=== PATIENT | male | born 1985 | race Caucasian/White ===

== ENCOUNTER 2023-05-17 10:44 | Outpatient (CLI) | payer BC, SELFPAY ==
--- NOTE | ~2023-05-17 | US_ITS ---
EXAMINATION: US scrotum doppler DATE: 05/17/2023 11:31 INDICATION: Other specified disorders of the male genital organs. Bilateral scrotal pain. TECHNIQUE: Grayscale and Doppler ultrasound images of the testes were obtained. COMPARISON: None. FINDINGS: The right testis measures 4.3 x 2.4 x 3.1 cm. The left testis measures 4.1 x 2.5 x 2.6 cm. There is normal vascular flow to both testes. The right epididymis demonstrates cysts measuring up to 7 mm. The left epididymis is normal with normal vascular flow. There is a small left hydrocele. IMPRESSION: 1. Small left hydrocele. Reviewed, dictated and finalized at location E. IMPRESSION: 1. Small left hydrocele.
== END 2023-05-17 10:45 ==
PROVIDERS: PCP Nurse Practitioner Family; Visit Provider Nurse Practitioner Family
DX: N50.89 Other specified disorders of the male genital organs (principal); N43.3 Hydrocele, unspecified
CPT/HCPCS: 76870; 93976

== ENCOUNTER 2023-11-05 09:45 | Emergency (ER) | payer BC, SELFPAY ==
[2023-11-05 09:49] VITALS: BP 125/68; PULSE 75; RESP 16; TEMP 36.7; O2SAT 100
[2023-11-05 09:51] VITALS: BP 96/57; PULSE 75; RESP 20; TEMP 36.7; O2SAT 100
[2023-11-05 10:10] VITALS: BP 125/68
--- NOTE | 2023-11-05 10:18 | ED.DENTAL ---
HPI - Dental/Oral General Chief complaint: Dental/Oral Stated complaint: toothache Time Seen by Provider: 11/05/23 10:10 Source: patient and RN notes reviewed Mode of arrival: ambulatory Limitations: no limitations History of Present Illness HPI Narrative: Patient presents today complaining of right lower wisdom tooth pain with surrounding gum swelling times 10 days. States he has episodes like this approximately twice yearly. He does get some significant relief from the ibuprofen and has also been using some Listerine. Woke up this morning with pain rating 5/10, but after some ibuprofen he currently rates it 1/10. He has an appointment with his dentist in 3 weeks. Related Data Home Medications Medication Instructions Recorded Confirmed omeprazole 20 mg capsule,delayed 20 mg PO DAILY 01/11/23 11/05/23 release tadalafil 5 mg tablet (Cialis) 5 mg PO PRN PRN Erectile 05/12/23 11/05/23 Dysfunction Allergies Allergy/AdvReac Type Severity Reaction Status Date / Time Penicillins AdvReac Mild Rash Verified 11/05/23 09:50 Review of Systems Review of Systems: CONSTITUTIONAL: Denies body aches, fever, chills, or sweats. EYES: Denies visual changes, redness, or discharge. ENT: Denies rhinorrhea, congestion, sore throat, or otalgia.+ tooth pain CARDIOVASCULAR: Denies chest pain, palpitations, or edema. RESPIRATORY: Denies cough or dyspnea. GASTROINTESTINAL: Denies abdominal pain, nausea, vomiting, or diarrhea. GENITOURINARY: Denies dysuria or hematuria. SKIN: Denies rash, itching, or wounds. MUSCULOSKELETAL: Denies back pain, joint pain, or myalgia. NEUROLOGIC: Denies headache, numbness, tingling, or weakness. PSYCH: Denies depression or anxiety. [facility] Past Medical History Medical History BMI 24.0-24.9, adult Surgical History Surgical History History of ankle surgery Family History Family History Father Hypertension Mother Osteoporosis Sibling Depression Anxiety Other Asthma Social History Social History Smoking status: Never smoker Second hand tobacco smoke exposure: No Alcohol intake: current Substance use: never Substance use type: does not use Lack of Transportation: No Lack of Food: Never True Current Housing: I Have Housing Concerned About Future Housing: No Difficulty Paying Gas/Electric Bills: No Difficulty Paying for Meds: No Currently Unemployed: No Education: Master's Degree or Higher Living arrangements: with family Occupation/Education: occupation 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 Gender identity (if verbalized by the patient): Male Comments At time of signature, I have reviewed and agree with nursing past medical, surgical, social and family history unless otherwise noted. Please see nursing chart for further information. There is no relevant family history pertinent to the presenting complaint Exam Narrative: GENERAL: Well-appearing, well-nourished, and in no acute distress. HEAD: Normocephalic, atraumatic. EYES: EOMI. No redness or drainage. Conjunctivae normal. ENT: Mucous membranes pink and moist. Throat normal. Uvula midline. Tenderness to tooth number 32 with [id number] surrounding gum swelling. No facial swelling noted. No obvious periapical abscess. NECK: Normal AROM. Supple. No lymphadenopathy. CHEST: No respiratory distress. EXTREMITIES: Normal range of motion. No edema. SKIN: Warm, dry, no rash. Capillary refill normal. Normal skin turgor. NEURO: No focal deficits. Alert and oriented x3. Gait steady. PSYCH: Normal affect. No signs of depression or anxiety. Course Course Level of Care: Express Care Visit Vital Signs Vit
--- NOTE | 2023-11-05 10:30 | PC.NURSE ---
2nd vitals are correct 1st was entered in error H.G.
== END 2023-11-05 10:24 | disposition home or self-care (01) ==
PROVIDERS: Emergency Provider Nurse Practitioner; PCP Family Medicine
DX: K08.89 Other specified disorders of teeth and supporting structures (principal)
CPT/HCPCS: 99213; G0463